=== PATIENT | female | born 1995 | race Two or more races ===

== ENCOUNTER 2024-11-10 10:39 | Outpatient (CLI) | payer BC | END 2024-11-10 10:40 | disposition home or self-care (01) | LOC: CSHRAD 10:39 | PROVIDERS: ATTEND Internal Medicine Rheumatology | DX: M54.6 Pain in thoracic spine (principal); M46.1 Sacroiliitis, not elsewhere classified; M25.50 Pain in unspecified joint | CPT/HCPCS: 72072; 72202 ==